=== PATIENT | female | born 1970 | race Caucasian/White ===

== ENCOUNTER 2019-03-06 08:34 | Day surgery (SDC) | payer BC ==
[~2019-03-06 08:34] MED LIST: Sodium Chloride 0.9% 10 ML Syringe FLUSH PRN
[2019-03-06] MEDS: Lactated Ringers 1,000 ML IV SCH (09:15)
[2019-03-06] MEDS ORDERED: Midazolam 1 MG/ML 2 ML SDV ONE (09:16)
[2019-03-06] MEDS ORDERED: fentaNYL 100 MCG/2 ML SDV ONE (09:16)
[2019-03-06] MEDS ORDERED: Scopolamine 1.5 MG Transdermal Patch ONE (09:16)
[2019-03-06] MEDS ORDERED: Propofol 200 MG/20 ML SDV ONE (09:16)
[2019-03-06] MEDS ORDERED: Bupivacaine 0.5%/EPINEPHrine 1:200,000 30 ML SDV ONE (09:29)
[2019-03-06] MEDS ORDERED: Ondansetron 4 MG/2 ML SDV IV ONE (09:51)
[2019-03-06] MEDS ORDERED: Lidocaine 1% with EPINEPHrine 1:100,000 20 ML MDV ONE (09:53)
--- NOTE | 2019-03-06 09:55 | PCM.PN ---
- General Info Date of Service: 03/06/19 - Review of Systems Systems Review Comment:: 48 y/o female with history of uterine cancer here for her initial screening colonoscopy. She is medically stable to proceed. Her recent H and P is reviewed and no significant changes are noted. Patient also has multiple lipomas on her extremities. 2 of these on her left arm are symptomatic with pain and I advised that these be removed as well. I have discussed the proposed procedures with the patient. Risks such as bleeding and GI injury discussed and she agrees to proceed. - Patient Data Vitals - Most Recent: Last Vital Signs Temp 97.5 F 03/06/19 08:30 Pulse 59 L 03/06/19 08:30 Resp 16 03/06/19 08:30 BP 141/71 H 03/06/19 08:30 Pulse Ox 97 03/06/19 08:30 Weight - Most Recent: 85.275 kg Med Orders - Current: Current Medications Lactated Ringer's (Ringers, Lactated) 1,000 mls @ 50 mls/hr IV ASDIRECTED ANGELIQUE Sodium Chloride (Saline Flush) 10 ml FLUSH Q8HR PRN PRN Reason: keep vein open Discontinued Medications Bupivacaine HCl/Epinephrine Bitart (Marcaine 0.5%/Epinephrine 1:200,000) Confirm Administered Dose 30 ml .ROUTE .STK-MED ONE Stop: 03/06/19 09:30 Fentanyl (Sublimaze) Confirm Administered Dose 100 mcg .ROUTE .STK-MED ONE Stop: 03/06/19 09:17 Midazolam HCl (Versed 1 Mg/Ml) Confirm Administered Dose 4 mg .ROUTE .STK-MED ONE Stop: 03/06/19 09:17 Propofol (Diprivan 20 Ml) Confirm Administered Dose 400 mg .ROUTE .STK-MED ONE Stop: 03/06/19 09:17 Scopolamine (Transderm-Scop) Confirm Administered Dose 1.5 mg .ROUTE .STK-MED ONE Stop: 03/06/19 09:17 - Problem List Review Problem List Initiated/Reviewed/Updated: Yes - My Orders Last 24 Hours: My Active Orders 03/05/19 15:04 Resuscitation Status Routine 03/06/19 08:30 Peripheral IV Care [RC] . DIRECTED Vital Signs [RC] PER UNIT ROUTINE Lactated Ringers [Ringers, Lactated] 1,000 ml IV ASDIRECTED Sodium Chloride 0.9% [Saline Flush] 10 ml FLUSH Q8HR PRN Peripheral IV Insertion Adult [OM.PC] Routine 03/06/19 09:15 Patient to Empty Bladder [RC] ASDIRECTED 03/06/19 09:45 Verify Patient Consent Obtain [RC] ASDIRECTED 03/06/19 Breakfast Nothing Per Oral Diet [DIET] - Assessment Assessment:: Colon Cancer Screening Painful Lipomas - Plan Plan:: Colonoscopy Lipoma removal
[2019-03-06] MEDS: Lidocaine 1% with EPINEPHrine 1:100,000 20 ML MDV INFILT ONE ×2 (10:08→10:24)
[2019-03-06] MEDS: Bacitracin/Neomycin/Polymyxin B Oint 0.9 GM U/D Packet TOP ONE (10:24)
[2019-03-06] MEDS ORDERED: Bacitracin/Neomycin/Polymyxin B Oint 0.9 GM U/D Packet ONE (10:33)
--- NOTE | 2019-03-06 10:57 | PCM.OPNOTE ---
- General Post-Op/Procedure Note Date of Surgery/Procedure: 03/06/19 Operative Procedure(s): Colonoscopy. Removal of lipomas from arm Findings: Normal colon benign appearing subcutaneous fatty tissue masses left arm x2 Pre Op Diagnosis: Colon Cancer Screening. Left arm masses Post-Op Diagnosis: Normal colon. Left arm masses Anesthesia Technique: Local, MAC Primary Surgeon: Bob Rodriguez Pathology: left arm masses x2 EBL in mLs: 5 Complications: None Condition: Good
--- NOTE | 2019-03-06 12:02 | OR ---
DATE OF SURGERY: 03/06/2019 SURGEON: Bob Rodriguez MD PREOPERATIVE DIAGNOSIS: 1. Colon cancer screening. 2. Masses x2, left arm. POSTOPERATIVE DIAGNOSIS: Normal colon and masses x2, left arm. OPERATION PERFORMED: Colonoscopy and excision of masses x2, left arm. INDICATIONS FOR SURGERY: This 48-year-old female presents today for initial screening colonoscopy. She has increased risk because of a personal history of uterine cancer. She also has 2 subcutaneously located masses on her left forearm. These are causing increased pain and showing some enlargement and she wishes these excised as well. FINDINGS: The patient's colon appeared normal. No polyps or other abnormalities were seen. On the patient's left forearm, 2 subcutaneously located benign-appearing fatty tissue masses are noted. These are grossly consistent with benign lipomas. One of these is 2.3 cm in size and the other is 2 cm in size. DESCRIPTION OF PROCEDURE: The patient was taken to the operating room. She was given intravenous sedation and with her in the left lateral decubitus position, digital rectal exam was performed showing no rectal masses. The Olympus colonoscope was inserted into the rectum. Retroflexed examination of the rectal canal was performed. The scope was then carefully advanced under direct visualization through the entire length of the colon until the cecum was reached. The colon was somewhat tortuous and reaching the cecum did require hand pressure, but eventually the cecum was able to be safely accessed and carefully viewed. The ileocecal valve and appendiceal orifice were visualized. After examining the cecum, the scope was slowly withdrawn sequentially re- examining the colonic segments until the entire colon and rectum had been fully examined. The scope was then removed. Attention was then turned to the left arm. The location of the 2 above-described masses had been previously marked and at each of these locations, the area was prepped with Betadine, draped, and then anesthetized with Xylocaine with epinephrine. A linear incision was made over each mass and careful blunt dissection was used to remove each mass in its entirety from the subcutaneous layer. As noted, the distal mass was 2.3 cm in size and the proximal mass was 2 cm in size. These incisions were each closed with interrupted 4-0 Prolene. Antibiotic ointment and sterile dressing were placed. The patient was then taken from the operating room in satisfactory condition. ESTIMATED BLOOD LOSS: 5 mL. COMPLICATIONS: None. PROGNOSIS: Good. /[id number]/MODL MTDD
== END 2019-03-06 12:00 | disposition home or self-care (01) ==
LOC: KA.SDS 08:34
PROVIDERS: ATTEND Surgery
DX: Z12.11 Encounter for screening for malignant neoplasm of colon (principal); K63.89 Other specified diseases of intestine; D17.22 Benign lipomatous neoplasm of skin and subcutaneous tissue of left arm; D64.9 Anemia, unspecified; Z85.42 Personal history of malignant neoplasm of other parts of uterus
CPT/HCPCS: A9270-GY; J2250; J2405; J2704; J3010; J7120

== ENCOUNTER 2023-11-22 09:24 | Day surgery (SDC) | payer BC ==
[2023-11-22] MEDS ORDERED: Midazolam 1 MG/ML 2 ML SDV IV ONE (09:25)
[2023-11-22] MEDS: Sodium Chloride 0.9% 10 ML Syringe FLUSH PRN (10:15)
[2023-11-22] MEDS ORDERED: Propofol 200 MG/20 ML SDV ONE ×2 (10:18→11:15)
[2023-11-22] MEDS ORDERED: Midazolam 1 MG/ML 2 ML SDV ONE ×3 (10:18→11:15)
[2023-11-22] MEDS: Lactated Ringers 1,000 ML IV SCH (10:19)
== END 2023-11-22 12:13 | disposition home or self-care (01) ==
LOC: KA.SDS 09:24
PROVIDERS: ATTEND Surgery
DX: Z12.11 Encounter for screening for malignant neoplasm of colon (principal); K57.30 Diverticulosis of large intestine without perforation or abscess without bleeding; Z80.0 Family history of malignant neoplasm of digestive organs
CPT/HCPCS: J2250; J2704; J3490; J7120